=== PATIENT | female | born 1980 | race Caucasian/White ===

== ENCOUNTER 2023-02-13 16:02 | Emergency (ER) | payer OTHER, SELFPAY ==
[2023-02-13 16:20] VITALS: BP 134/66; PULSE 80; RESP 16; TEMP 37; O2SAT 97; BMI 32.8
--- NOTE | 2023-02-13 17:20 | ED.BACK ---
HPI - Back Pain/Injury General Chief Complaint: Back Pain/Injury Stated Complaint: low back pain Time Seen by Provider: 02/13/23 17:10 Source: patient and EMS Mode of arrival: EMS History of Present Illness HPI Narrative: Patient is a 43-year-old female who is here for evaluation of lower back pain. She states she was sitting on the floor working on her floor VAC when she states she had a sudden onset of some tingling in her right side of her lower back. She states she then rolled over and got up and when she stood up the pain then moved to the left side of her back. She stated that she would a difficult time even standing up. She arrived by EMS. No tingling down to her lower extremities. Related Data Previous Rx's Medication Instructions Recorded metoprolol succinate 25 mg 25 mg PO QDAY ##15 06/03/17 tablet,extended release 24 hr (Toprol XL) cyclobenzaprine 10 mg tablet 10 mg PO TID PRN muscle spasm #21 02/13/23 tabs Allergies Allergy/AdvReac Type Severity Reaction Status Date / Time No Known Allergies Allergy Uncoded 09/07/17 12:50 Review of Systems Constitutional Constitutional: Reports system reviewed and no additional complaints, except as documented Musculoskeletal Musculoskeletal: Reports system reviewed and no additional complaints, except as documented Integumentary/Breasts Skin/Breast: Reports system reviewed and no additional complaints, except as documented Patient History Social History Smoking Status: Never smoker Smoking Status: Never smoker alcohol intake frequency: holidays/special occasions only Substance Use Type: does not use Exam Initial Vital Signs Initial Vital Signs: Vital Signs Temperature 98.6 F 02/13/23 16:20 Pulse Rate 80 02/13/23 16:20 Respiratory Rate 16 02/13/23 16:20 Blood Pressure 134/66 02/13/23 16:20 Pulse Oximetry 97 02/13/23 16:20 Oxygen Delivery Method Room Air 02/13/23 16:20 Back/Spine/Pelvis Thoracic/Lumbar Spine: paraspinal tenderness (Bilateral lumbar region.), No thoracic spinal tenderness and No lumbar spinal tenderness Neuro General: patient alert, patient awake, patient oriented x3 and moves all extremities Extrem Other: Patient is ambulatory. Course Orders Ordered: Discontinued Medications Cyclobenzaprine HCl (Cyclobenzaprine 10 Mg Tablet) 10 mg PO NOW ONE Stop: 02/13/23 17:21 Ketorolac Tromethamine (Ketorolac 30 Mg/Ml Vial) 30 mg IM NOW ONE Stop: 02/13/23 17:21 Vital Signs Vital signs: Vital Signs - 8 hr 02/13/23 16:20 Temperature 98.6 F Pulse Rate 80 Respiratory Rate 16 Blood Pressure 134/66 Pulse Oximetry 97 Oxygen Delivery Method Room Air MDM - Back Pain/Injury MDM Narrative Medical decision making narrative: This is clearly a muscular issue. I have low suspicion for fracture. Low suspicion for cauda equina. No indication for radiologic studies. Will give patient Toradol and muscle relaxers. I suspect that her symptoms will improve over the next couple days. Provided reassurance to the patient. She expressed understanding and agreement. Discharge Plan Departure Patient Disposition: Home Clinical Impression: Strain of lumbar region Instructions: DI for Back Strain or Sprain Activity Restrictions/Additional Instructions: I do recommend that you continue with conservative measures such as heat/ice and massage and stretching. Take the muscle relaxers as needed. You can also take anti-inflammatories such as ibuprofen. Return to the emergency department for new or worsening symptoms. Prescriptions: New cyclobenzaprine 10 mg tablet 10 mg PO TID PRN (Reason: muscle spasm) Qty: 21 0RF No Action metoprolol succinate [Toprol XL] 25 MG tablet extended release 24 hr 25 mg PO QDAY Qty: 15 0RF Stand Alone Forms: Patient Portal/API
[2023-02-13] MEDS: CYCLOBENZAPRINE 10 MG TABLET PO (17:29)
[2023-02-13] MEDS: KETOROLAC 30 MG/ML VIAL IM (17:29)
== END 2023-02-13 17:46 | disposition home or self-care (01) ==
PROVIDERS: Emergency Provider Emergency Medicine
DX: S39.012A Strain of muscle, fascia and tendon of lower back, initial encounter (principal)
CPT/HCPCS: 96372; 99283; J1885

== ENCOUNTER → 2023-11-07 13:31 | Outpatient (CLI) | payer OTHER, SELFPAY ==
--- NOTE | 2023-11-07 13:33 | DI.ECHO.S_ITS ---
[facility] : : [address] : : [place] : : [id number] : : Phone: [phone] Echocardiogram Report + + :Name: TORSTEN OLSON Study Date: 11/07/2023 Height: 67 in : :[facility] ReadingLocation: Weight: 215 lb : : Gender: Female BSA: 2.1 m2 : :: 1980 Age: 43 yrs BP: 130/91 mmHg: :Reason For Study: ATRIAL FLUTTER : :Ordering Physician: DIETER, : :CYNTHIA Boles Performed By: Karli Phoenix : :Referring: CYNTHIA HUANG : + + Interpretation Summary The ejection fraction is estimated to be 60-65%. Diastolic parameters suggest probable normal left ventricular diastolic function and normal filling pressures. The right ventricle is normal in size and function. There is mild mitral regurgitation. Pulmonary artery pressures cannot be estimated because of the lack of a measurable TR jet velocity but the IVC suggests a CVP of around 3 mmHg. Procedure: A two-dimensional transthoracic echocardiogram with color flow and Doppler was performed. The study quality was technically adequate. The study quality was technically difficult. There is no prior echocardiogram noted for this patient. The patient was in sinus rhythm with heart rates between 73-80 bpm during the exam. Left Ventricle: The left ventricle is normal in size and wall thickness. The ejection fraction is estimated to be 60-65%. Diastolic parameters suggest probable normal left ventricular diastolic function and normal filling pressures. Right Ventricle: The right ventricle is normal in size and function. Atria: The left atrial size is normal. Right atrial size is normal. There is no Doppler evidence for an interatrial shunt. Mitral Valve: The mitral valve is normal. There is mild mitral regurgitation. Aortic Valve: The aortic valve opens well. The aortic valve is trileaflet. There is no aortic valve stenosis. No aortic regurgitation is present. Tricuspid Valve: The tricuspid valve is normal in structure and function. There is trace tricuspid regurgitation. Pulmonary artery pressures cannot be estimated because of the lack of a measurable TR jet velocity but the IVC suggests a CVP of around 3 mmHg. Pulmonic Valve: The pulmonic valve is not well seen, but is grossly normal. There is no pulmonic valvular regurgitation. Great Vessels: The aortic root is normal size. The dimensions of the ascending aorta are normal. The IVC is of normal diameter and collapses greater than 50% with a sniff. This suggests a low right atrial pressure of 3 mm Hg. Pericardium/ Pleura There is no pericardial effusion. There is no pleural effusion. MMode/2D Measurements & Calculations LVIDd: 4.5 cm LVOT diam: 2.0 cm LVIDs: 2.8 cm Ao root diam: 2.5 cm FS: 38.1 % asc Aorta Diam: 2.9 cm IVSd: 0.80 cm Ao Arch Diam (Prox Trans): 2.7 cm LVPWd: 0.99 cm LV santoyo. diameter/BSA (cm/m^2): 2.2 LV sys. diameter/BSA (cm/m^2): 1.3 LA A2 area: 17.4 cm2 RA long axis: 4.8 cm LA A4 area: 14.1 cm2 RA area: 13.8 cm2 LA length (vol): 5.2 cm RA vol: 33.6 ml LA vol: 40.4 ml RA : 16.1 ml/m2 LA vol index: 19.4 ml/m2 IVC diam: 1.3 cm RVD1 (basal): 2.7 cm RVD2 (mid): 2.9 cm TAPSE: 2.4 cm Doppler Measurements & Calculations Ao V2 max: 139.1 cm/sec LVOT Max Vishal: 108.2 cm/sec Ao V2 mean: 96.1 cm/sec LV V1 max P.7 mmHg Ao max P.7 mmHg LV V1 VTI: 19.9 cm Ao mean P.1 mmHg KELLEY(I,D): 2.0 cm2 Ao V2 VTI: 29.3 cm KELLEY(V,D): 2.3 cm2 sev ratio: 0.68 KELLEY indexed to BSA (cm^2/m^2): 0.98 MV E max vishal: 100.5 cm/sec PA V2 max: 108.4 cm/sec MV A max vishal: 73.7 cm/sec PA V2 mean: 75.6 cm/sec MV E/A: 1.4 PA mean P.5 mmHg Med Peak E' Vishal: 11.8 cm/sec PA pr(Accel): 36.2 mmHg E/E' med: 8.5 Lat Peak E' Vishal: 11.3 cm/sec E/E' lat: 8.9 E/e' average: 8.7 MV dec time: 0.18 sec SV(LVOT): 60.0 ml Reading Physician:01:39 PM
--- NOTE | 2023-11-07 13:33 | DI.NM.S_ITS ---
PROCEDURE: NM EXERCISE TREADMILL NON NUC COMPARISON: None INDICATIONS: Atrial Flutter FINDINGS: Rest ECG sinus rhythm. Mac protocol 6:14, maximum heart rate 168 bpm (94% peak predicted), maximum blood pressure 172/80, 7.0 METS, ROHIT +28%. Exercise ECG sinus tachycardia, no ST segment changes or arrhythmia. The patient did not complain of exercise-induced chest discomfort. IMPRESSION: Low risk study. No evidence of exercise-induced ischemia or arrhythmia. Normal hemodynamic response. Reduced exercise capacity. Dictated by: Cynthia Huang D.O. on 11/08/2023 at 12:45 Approved by: Cynthia Huang D.O. on 11/08/2023 at 12:46
== END ==
PROVIDERS: PCP Student in an Organized Health Care Education/Training Program; Referring Provider Internal Medicine Cardiovascular Disease; Visit Provider Internal Medicine Cardiovascular Disease
DX: I34.0 Nonrheumatic mitral (valve) insufficiency (principal); I48.92 Unspecified atrial flutter
CPT/HCPCS: 93017; 93306